=== PATIENT | male | born 1990 | race Caucasian/White ===

== ENCOUNTER 2020-12-16 17:57 | Outpatient (CLI) | payer BC ==
[2020-12-17 03:55] LABS: SARS-CoV-2 PCR by NAA Not Detected (NotDetected)
== END 2020-12-16 17:58 | disposition home or self-care (01) ==
LOC: LABBT 17:57
PROVIDERS: ATTEND Otolaryngology Plastic Surgery within the Head & Neck
DX: Z01.812 Encounter for preprocedural laboratory examination (principal); K11.8 Other diseases of salivary glands; Z20.822 Contact with and (suspected) exposure to COVID-19
CPT/HCPCS: 87635; U0003; U0005

== ENCOUNTER 2020-12-21 06:58 | Day surgery (SDC) | payer BC ==
[2020-12-20 11:45] VITALS: BMI 38.4
[2020-12-21] MEDS ORDERED: Midazolam HCl 2 mg/2 ml Vial ONE (07:53)
[2020-12-21] MEDS ORDERED: Bacitracin Zinc Ointment 30 gm TUBE ONE (07:54)
[2020-12-21] MEDS ORDERED: Lidocaine 1% w/Epinephrine 1:100K 20 ML VIAL ONE (07:54)
[2020-12-21] MEDS ORDERED: Fentanyl 100 MCG/2 ML VIAL ONE (08:42)
[2020-12-21] MEDS ORDERED: Dexamethasone 20 MG/5 ML VIAL ONE (09:35)
[2020-12-21] MEDS ORDERED: Lidocaine 1% PF 5 ML VIAL ONE (09:35)
[2020-12-21] MEDS ORDERED: PROPOFOL 200 MG/20 ML VIAL ONE (09:35)
[2020-12-21] MEDS ORDERED: Ondansetron PF 4 MG/2 ML Vial ONE (09:35)
[2020-12-21] MEDS ORDERED: Succinylcholine 200 MG/10 ml SYRINGE FS ONE (09:35)
[2020-12-21] MEDS ORDERED: Dexmedetomidine 200 MCG/2 ML VIAL ONE (09:38)
[2020-12-21] MEDS ORDERED: HYDROcodone/Acetaminophen 5/325 mg Tablet ONE (13:44)
== END 2020-12-21 14:10 | disposition home or self-care (01) ==
LOC: SDC 06:58
PROVIDERS: ATTEND Otolaryngology Plastic Surgery within the Head & Neck
PROC: 0CBB0ZZ Excision of Right Parotid Duct, Open Approach (ICD-10-PCS; principal; 2020-12-21)
DX: D23.9 Other benign neoplasm of skin, unspecified (principal); E66.9 Obesity, unspecified; Z68.38 Body mass index [BMI] 38.0-38.9, adult
CPT/HCPCS: 88305; J1100; J2250; J2405; J2704; J3010